=== PATIENT | male | born 1950 | race African-American/Black ===

== ENCOUNTER 2016-06-10 14:08 | Inpatient (IN) | payer MEDICARE, OTHER, MEDICAID ==
[~2016-06-10] VITALS: Ht 182.9 cm; Wt 99.8 kg
[2016-06-10] MEDS ORDERED: LORAZEPAM1 MG ORAL (14:21)
[2016-06-10] MEDS ORDERED: ATORVASTATIN CA20 MG ORAL (14:21)
[2016-06-10] MEDS ORDERED: TYLENOL650 MG/20. ORAL (14:21)
[2016-06-10] MEDS ORDERED: SERTRALINE HCL25 MG ORAL (14:21)
[2016-06-10] MEDS ORDERED: HYDROXYZINE PA100 MG ORAL (14:21)
[2016-06-10] MEDS ORDERED: ZYPREXA5 MG ORAL (14:21)
--- NOTE | 2016-06-10 14:24 | Emergency Room Report ---
History of Present Illness General Chief Complaint: Altered Level of Consciousness Source: Patient, EMS Present Illness HPI Patient is a 65-year-old male brought in from assisted living after increased altered level consciousness. Patient was found lying on the floor. He was reportedly unresponsive. He is noted to have prior history of CVA. Patient had been brought in by EMS. He was noted to have a blood sugar greater than 200. He had unclear onset of symptoms. History is limited by patient's mental status. Allergies: Coded Allergies: No Known Allergies (Unverified , 06/10/16) Patient History Reviewed Nursing Documentation: PMH: Agreed, PSxH: Agreed Nursing Documentation-PM Past Medical History: No History, Except For Hx Hypertension: Yes Hx Gastrointestinal Problems: Yes - GERD History Of Psychiatric Problem: Yes - schizoaffective disorder Review of Systems All Other Systems: limited - by Physical Exam Vital Signs Date Time Temp Pulse Resp B/P Pulse Ox O2 Delivery O2 Flow Rate FiO2 06/10/16 14:12 98.4 116 20 121/63 97 Room Air Sp02 EP Interpretation: reviewed, normal General Appearance: normal inspection, no apparent distress, other - E1 V2M5 Head: atraumatic ENT: normal ENT inspection, hearing grossly normal, normal voice Neck: normal inspection, full range of motion, supple, no bony tend Respiratory: normal inspection, lungs clear, normal breath sounds, no respiratory distress, no retraction, no wheezing Cardiovascular #1: regular rate, rhythm, no edema Gastrointestinal: normal inspection, normal bowel sounds, non tender, soft, no guarding, no hernia Genitourinary: no CVA tenderness Musculoskeletal: normal inspection, back normal, normal range of motion Neurologic: normal inspection, alert, responsive, speech normal Psychiatric: normal inspection, judgement/insight normal, mood/affect normal Skin: normal inspection, normal color, no rash Medical Decision Making Diagnostic Impression: Primary Impression: Altered level of consciousness Additional Impressions: Lactic acid acidosis Seizure ER Course Patient is a 65-year-old male. Differential diagnosis included but was not limited to ischemic stroke, subarachnoid hemorrhage, hypoglycemia, spinal cord injury, neurodegenerative disorder, urinary tract infection, hypoxemia.Because of complexity of patient's case laboratory testing and imaging studies were ordered.Laboratory testing showed elevated Lactic acid level. A repeat lactic as low as noted been improved. The patient had normal white blood count. The patient had gradual improvement in his mental status. Patient was empirically loaded with Keppra may have had a recent seizure. Labs Test 06/10/16 15:15 06/10/16 17:30 White Blood Count 13.0 K/UL (4.8-10.8) Red Blood Count 4.07 M/UL (4.70-6.10) Hemoglobin 12.6 G/DL (14.2-18.0) Hematocrit 39.2 % (42.0-52.0) Mean Corpuscular Volume 96 FL (80-99) Mean Corpuscular Hemoglobin 31.1 PG (27.0-31.0) Mean Corpuscular Hemoglobin Concent 32.2 G/DL (32.0-36.0) Red Cell Distribution Width 12.0 % (11.6-14.8) Platelet Count 209 K/UL (150-450) Mean Platelet Volume 6.7 FL (6.5-10.1) Neutrophils (%) (Auto) % (45.0-75.0) Lymphocytes (%) (Auto) % (20.0-45.0) Monocytes (%) (Auto) % (1.0-10.0) Eosinophils (%) (Auto) % (0.0-3.0) Basophils (%) (Auto) % (0.0-2.0) Differential Total Cells Counted 100 Neutrophils % (Manual) 85 % (45-75) Lymphocytes % (Manual) 10 % (20-45) Monocytes % (Manual) 4 % (1-10) Eosinophils % (Manual) 1 % (0-3) Basophils % (Manual) 0 % (0-2) Band Neutrophils 0 % (0-8) Platelet Estimate Adequate Platelet Morphology Normal Red Blood Cell Morphology Normal Prothrombin Time 10.7 SEC (9.30-11.50) Prothromb Time International Ratio 1.1 (0.9-1.1) Activated Partial Thromboplast Time 23 SEC (23-33) Sodium Level 144 mEQ/L (135-145) Potassium Level 3.9 mEQ/L (3.4-4.9) Chloride Level 100 mEQ/L (98-107) Carbon Dioxide Level 20 mEQ/L (20-30) Anion Gap 24 (5-15) Blood Urea Nitrogen 11 mg/dL (7-23) Creatinine 1.6 mg/dL (0.7-1.2) Estimat Glomerular Filtration Rate 43.6 mL/min (>60) Glucose Level 154 mg/dL (74-106) Calcium Level 9.7 mg/dL (8.6-10.2) Total Bilirubin 0.4 mg/dL (0.0-1.2) Aspartate Amino Transf (AST/SGOT) 19 U/L (5-40) Alanine Aminotransferase (ALT/SGPT) 16 U/L (3-41) Alkaline Phosphatase 51 U/L (40-129) Total Creatine Kinase 362 U/L (38-174) Creatine Kinase MB 4.2 ng/mL (< 6.7) Creatine Kinase MB Relative Index 1.1 Troponin I < 0.30 ng/mL (<=0.30) Total Protein 7.3 g/dL (6.6-8.7) Albumin 4.1 g/dL (3.5-5.2) Globulin 3.2 g/dL Albumin/Globulin Ratio 1.2 (1.0-2.7) Lactic Acid Level 1.40 mmol/L (0.66-2.22) Last Vital Signs Date Time Temp Pulse Resp B/P Pulse Ox O2 Delivery O2 Flow Rate FiO2 06/10/16 14:12 98.4 116 20 121/63 97 Room Air Status: unchanged Disposition: ADMITTED INPATIENT Condition: Serious Albert Momin Jun 10, 2016 14:24
[2016-06-10 15:22] VITALS: BP 163/83
[2016-06-10 15:31] LABS: MEAN CORPUSCULAR HEMOGLOBIN 31.1 PG (27.0-31.0); MEAN CORPUSCULAR HGB CONC 32.2 G/DL (32.0-36.0); MEAN CORPUSCULAR VOLUME 96 FL (80-99); MEAN PLATELET VOLUME 6.7 FL (6.5-10.1); PLATELET COUNT 209 K/UL (150-450); RED BLOOD COUNT 4.07 M/UL (4.70-6.10)
[2016-06-10 15:38] LABS: INR 1.1 (0.9-1.1); PROTHROMBIN TIME 10.7 SEC (9.30-11.50)
[2016-06-10 15:49] LABS: TROPONIN I < 0.30 ng/mL (<=0.30)
[2016-06-10 15:51] LABS: ALBUMIN/GLOBULIN RATIO 1.2 (1.0-2.7); CALCIUM 9.7 mg/dL (8.6-10.2); CREATININE 1.6 mg/dL (0.7-1.2); GLOMERULAR FILTRATION RATE 43.6 mL/min (>60); POTASSIUM 3.9 mEQ/L (3.4-4.9); TOTAL PROTEIN 7.3 g/dL (6.6-8.7)
[2016-06-10] MEDS ORDERED: cefTRIAXone 2 GM in NS 110 ML IVPB ONE (16:00)
[2016-06-10 16:02] LABS: CKMB 4.2 ng/mL (< 6.7)
[2016-06-10 16:21] LABS: REFLEX LACTIC ACID YES OR NO YES
[2016-06-10 17:12] LABS: BAND NEUTROPHILS % (MANUAL) 0 % (0-8); BASOPHILS % (MANUAL) 0 % (0-2); EOSINOPHILS % (MANUAL) 1 % (0-3); LYMPHOCYTES % (MANUAL) 10 % (20-45); NEUTROPHILS % (MANUAL) 85 % (45-75); PLATELET ESTIMATE ADEQUATE; PLATELET MORPHOLOGY NORMAL; TOTAL CELLS COUNTED 100
[2016-06-10 19:13] VITALS: BP 162/81
[2016-06-10] MEDS ORDERED: levETIRAcetam 500 MG in D5W 110 ML IVPB ONE (19:15)
[2016-06-10] MEDS ORDERED: levETIRAcetam 500mg vial IV ONE (19:22)
[2016-06-10 20:17] LABS: APPEARANCE,URINE CLEAR; KETONES,URINE 3+ (NEGATIVE); LEUKOCYTE ESTERASE ,URINE NEGATIVE (NEGATIVE); NITRITE,URINE NEGATIVE (NEGATIVE); PH,URINE 6 (4.5-8.0); PROTEIN,URINE 1+ (NEGATIVE); UROBILINOGEN,URINE NORMAL MG/DL (0.0-1.0)
[2016-06-10 20:26] LABS: BACTERIA,URINE FEW /HPF; SQUAMOUS EPITHELIAL CELL,UR FEW /LPF (NONE/OCC)
[2016-06-10 21:13] VITALS: BP 166/84
[2016-06-10 23:13] VITALS: BP 164/87
[2016-06-10] MEDS ORDERED: LORazepam 1mg tab ORAL ONE (23:15)
[2016-06-10] MEDS ORDERED: Vancomycin 1.5 GM/D5W 325 ML IVPB ONE ×2 (23:30)
[2016-06-11] MEDS ORDERED: Zosyn 3.375gm inj ONE (03:41)
[2016-06-11] MEDS ORDERED: Piperacillin/Tazobactam 3.375 GM in NS 110 ML IVPB ONE (04:30)
[2016-06-11 05:25] LABS: BASOPHILS % (AUTO) 1.1 % (0.0-2.0); LYMPHOCYTES % (AUTO) 21.5 % (20.0-45.0); MEAN CORPUSCULAR HEMOGLOBIN 31.7 PG (27.0-31.0); MEAN CORPUSCULAR HGB CONC 32.9 G/DL (32.0-36.0); MEAN CORPUSCULAR VOLUME 96 FL (80-99); MEAN PLATELET VOLUME 7.4 FL (6.5-10.1); NEUTROPHILS % (AUTO) 71.4 % (45.0-75.0); PLATELET COUNT 194 K/UL (150-450); RED BLOOD COUNT 3.95 M/UL (4.70-6.10); RED CELL DISTRIBUTION WIDTH 12.1 % (11.6-14.8); WHITE BLOOD COUNT 11.6 K/UL (4.8-10.8)
[2016-06-11 05:43] LABS: ALANINE AMINOTRANSFERASE 24 U/L (3-41); ALBUMIN/GLOBULIN RATIO 1.2 (1.0-2.7); ANION GAP 18 (5-15); ASPARTATE AMINO TRANSFERASE 54 U/L (5-40); CALCIUM 9.3 mg/dL (8.6-10.2); CARBON DIOXIDE 21 mEQ/L (20-30); CHLORIDE 103 mEQ/L (98-107); CREATININE 1.2 mg/dL (0.7-1.2); GLOMERULAR FILTRATION RATE > 60 mL/min (>60); HEMOLYSIS 11; POTASSIUM 3.9 mEQ/L (3.4-4.9); SODIUM 142 mEQ/L (135-145); TOTAL PROTEIN 6.7 g/dL (6.6-8.7)
[2016-06-11] MEDS: NovoLOG Insulin Flexpen SUBQ SCH ×4 (06:08→21:19)
[2016-06-11] MEDS ORDERED: Sertraline 50mg tab ORAL SCH (09:00)
[2016-06-11] MEDS ORDERED: levETIRAcetam 500 MG in D5W 110 ML IV SCH (09:00)
[2016-06-11] MEDS: Heparin 5000 units/ml inj SUBQ SCH ×2 (09:20→21:12)
--- NOTE | 2016-06-11 09:32 | Diagnostic Imaging Report ---
Indication: AMS Technique: Continuous helical CT scanning of the head was performed without intravenous contrast material. Axial and coronal 5 mm sections were generated. Radiation dose was minimized using automated exposure control Dose: Total Dose Length Product - DLP [address] Dose Index - CTDIvol(s) 70.38 mGy. Comparison: None Findings: The ventricular system is normal in size and configuration. There is no shift of midline structures. No abnormal extra-axial fluid collections are noted. There is no evidence of intracerebral bleeding. No other abnormal high or low density areas are noted within the brain. Impression: Normal CT scan of the head without contrast material. This agrees with the preliminary interpretation provided overnight by Dr. Segovia The CT scanner at [facility] is accredited by the [employer] and the scans are performed using protocols designed to limit radiation exposure to as low as reasonably achievable to attain images of sufficient resolution adequate for diagnostic evaluation.
[2016-06-11 09:53] VITALS: BP 166/86
[2016-06-11 12:00] VITALS: BP 179/85
[2016-06-11] MEDS ORDERED: LORazepam Inj 2mg/ml 1ml IV PRN (12:00)
--- NOTE | 2016-06-11 12:02 | Neurology Progress Note ---
Objective Physical Exam Last Vital Signs Date Time Temp Pulse Resp B/P Pulse Ox O2 Delivery O2 Flow Rate FiO2 06/11/16 09:53 98.1 105 20 166/86 97 06/10/16 23:26 Room Air Laboratory Tests Test 06/10/16 15:15 06/10/16 17:30 06/10/16 20:00 06/11/16 04:30 White Blood Count 13.0 K/UL (4.8-10.8) H 11.6 K/UL (4.8-10.8) H Red Blood Count 4.07 M/UL (4.70-6.10) L 3.95 M/UL (4.70-6.10) L Hemoglobin 12.6 G/DL (14.2-18.0) L 12.5 G/DL (14.2-18.0) L Hematocrit 39.2 % (42.0-52.0) L 38.1 % (42.0-52.0) L Mean Corpuscular Volume 96 FL (80-99) 96 FL (80-99) Mean Corpuscular Hemoglobin 31.1 PG (27.0-31.0) H 31.7 PG (27.0-31.0) H Mean Corpuscular Hemoglobin Concent 32.2 G/DL (32.0-36.0) 32.9 G/DL (32.0-36.0) Red Cell Distribution Width 12.0 % (11.6-14.8) 12.1 % (11.6-14.8) Platelet Count 209 K/UL (150-450) 194 K/UL (150-450) Mean Platelet Volume 6.7 FL (6.5-10.1) 7.4 FL (6.5-10.1) Neutrophils (%) (Auto) % (45.0-75.0) 71.4 % (45.0-75.0) Lymphocytes (%) (Auto) % (20.0-45.0) 21.5 % (20.0-45.0) Monocytes (%) (Auto) % (1.0-10.0) 5.0 % (1.0-10.0) Eosinophils (%) (Auto) % (0.0-3.0) 1.0 % (0.0-3.0) Basophils (%) (Auto) % (0.0-2.0) 1.1 % (0.0-2.0) Differential Total Cells Counted 100 Neutrophils % (Manual) 85 % (45-75) H Lymphocytes % (Manual) 10 % (20-45) L Monocytes % (Manual) 4 % (1-10) Eosinophils % (Manual) 1 % (0-3) Basophils % (Manual) 0 % (0-2) Band Neutrophils 0 % (0-8) Platelet Estimate Adequate Platelet Morphology Normal Red Blood Cell Morphology Normal Prothrombin Time 10.7 SEC (9.30-11.50) Prothromb Time International Ratio 1.1 (0.9-1.1) Activated Partial Thromboplast Time 23 SEC (23-33) Sodium Level 144 mEQ/L (135-145) 142 mEQ/L (135-145) Potassium Level 3.9 mEQ/L (3.4-4.9) 3.9 mEQ/L (3.4-4.9) Chloride Level 100 mEQ/L (98-107) 103 mEQ/L (98-107) Carbon Dioxide Level 20 mEQ/L (20-30) 21 mEQ/L (20-30) Anion Gap 24 (5-15) H 18 (5-15) H Blood Urea Nitrogen 11 mg/dL (7-23) 9 mg/dL (7-23) Creatinine 1.6 mg/dL (0.7-1.2) H 1.2 mg/dL (0.7-1.2) Estimat Glomerular Filtration Rate 43.6 mL/min (>60) > 60 mL/min (>60) Glucose Level 154 mg/dL (74-106) H 122 mg/dL (74-106) H Lactic Acid Level 5.00 mmol/L (0.66-2.22) H 1.40 mmol/L (0.66-2.22) Calcium Level 9.7 mg/dL (8.6-10.2) 9.3 mg/dL (8.6-10.2) Total Bilirubin 0.4 mg/dL (0.0-1.2) 0.5 mg/dL (0.0-1.2) Aspartate Amino Transf (AST/SGOT) 19 U/L (5-40) 54 U/L (5-40) H Alanine Aminotransferase (ALT/SGPT) 16 U/L (3-41) 24 U/L (3-41) Alkaline Phosphatase 51 U/L (40-129) 52 U/L (40-129) Total Creatine Kinase 362 U/L (38-174) H Creatine Kinase MB 4.2 ng/mL (< 6.7) Creatine Kinase MB Relative Index 1.1 Troponin I < 0.30 ng/mL (<=0.30) Total Protein 7.3 g/dL (6.6-8.7) 6.7 g/dL (6.6-8.7) Albumin 4.1 g/dL (3.5-5.2) 3.7 g/dL (3.5-5.2) Globulin 3.2 g/dL 3.0 g/dL Albumin/Globulin Ratio 1.2 (1.0-2.7) 1.2 (1.0-2.7) Urine Color Pale yellow Urine Appearance Clear Urine pH 6 (4.5-8.0) Urine Specific [place] 1.015 (1.005-1.035) Urine Protein 1+ (NEGATIVE) H Urine Glucose (UA) Negative (NEGATIVE) Urine Ketones 3+ (NEGATIVE) H Urine Occult Blood 2+ (NEGATIVE) H Urine Nitrite Negative (NEGATIVE) Urine Bilirubin Negative (NEGATIVE) Urine Urobilinogen Normal MG/DL (0.0-1.0) Urine Leukocyte Esterase Negative (NEGATIVE) Urine RBC 5-10 /HPF (0 - 0) H Urine WBC 2-4 /HPF (0 - 0) Urine Squamous Epithelial Cells Few /LPF (NONE/OCC) Urine Bacteria Few /HPF (NONE) Impression/Recommendations Problems: (1) generalised rigidity, tremor, verbal unresponsiveness. r/o sepsis r/o toxic/ methabolic encephalopathy (2) Lactic acid acidosis Status: unchanged Recommendations #[id number] hold serthraline SANIYA Carnes Jun 11, 2016 12:02
--- NOTE | 2016-06-11 12:07 | Diagnostic Imaging Report ---
Indication: SOB Technique: One view of the chest Comparison: none Findings: Lungs and pleural spaces are clear. Heart size is normal Impression: Negative
[2016-06-11] MEDS: Piperacillin/Tazobactam 3.375 GM in D5W 110 ML IVPB SCH ×2 (13:05→21:07)
[2016-06-11 13:10] LABS: CHOLESTEROL/HDL RATIO 2.7 (3.3-4.4)
[2016-06-11 13:17] LABS: CKMB 9.4 ng/mL (< 6.7)
[2016-06-11 16:00] VITALS: BP 154/94
[2016-06-11] MEDS ORDERED: Tubing IV Secondary IV ONE (16:11)
[2016-06-11] MEDS: Vancomycin 750mg/D5W 275ml IVPB SCH ×2 (16:21)
--- NOTE | 2016-06-11 18:47 | History and Physical Report ---
DATE OF ADMISSION: 06/10/2016 REASON FOR ADMISSION: Altered mental status. HISTORY OF PRESENT ILLNESS: The patient is a 65-year-old male who presented through the emergency room. The patient apparently brought in from assisted living with increased altered level of consciousness. The patient apparently was found lying on the floor, reportedly unresponsive. The patient has had prior history of CVA. Apparently, the patient was unable to give much in the way of history. The patient was seen in the emergency room, labs ordered, as well as CT of the head. The patient is now being admission for ongoing management. The patient does not have any elevated blood sugars. No reported head trauma. PAST MEDICAL HISTORY: Notable for GERD, history of CVA in the past, schizoaffective disorder, and chronic encephalopathy. MEDICATIONS: Reviewed. ALLERGIES: Reviewed. SOCIAL HISTORY: Resides in assisted living. Nonsmoker. Nondrinker. No clear history of IV drug use. REVIEW OF SYSTEMS: The patient's review of systems is difficult to obtain as the patient is altered. PHYSICAL EXAMINATION: GENERAL: A well-developed male, comfortable. VITAL SIGNS: Blood pressure 164/87, pulse 87, respiratory rate 21, saturation 98%, and temperature is 98.3. HEENT: Fairly negative. NECK: Supple. No adenopathy. LUNGS: Moderate breath sounds. Symmetric. No rhonchi or wheezes. CARDIAC: S1 and S2. Regular rate and rhythm without murmurs, rubs, or gallops. ABDOMEN: Soft, nontender, and nondistended. EXTREMITIES: No cyanosis, clubbing, or edema. NEUROLOGICAL: Grossly nonfocal with reduced mental status. LABORATORY AND DIAGNOSTIC DATA: Lab data reviewed. White blood cell count 11.6, hemoglobin 12.5, hematocrit 38, and platelets are 194,000. Chemistry is fairly negative. Blood sugar is 122, however, lactic acid is 5 on initial draw. Repeat is 1.4. IMPRESSION: 1. Altered mental status. 2. Acute on chronic encephalopathy. 3. Hypercholesterolemia. 4. History of gastroesophageal reflux disease. 5. History of cerebrovascular accident. 6. Possible acute neurological event. 7. Seizure disorder. 8. Consider sepsis. RECOMMENDATION: 1. Empiric antibiotics. 2. Neurological evaluation. 3. ID evaluation. 4. Seizure medications. 5. Follow clinically. 6. Recommend to avoid any sedatives. 7. Monitor neurological exam, consider further workup. 8. We will continue to support clinically. 9. The patient to remain in [facility] for now and presently required NG feedings as he appears to be of aspiration risk. Jorgito Pemberton M.D. DR: JOEY JOB#: [id number] CC: EVELIO
[2016-06-11 19:00] VITALS: BP 137/78
--- NOTE | 2016-06-11 19:58 | Consultation ---
DATE OF CONSULTATION: 06/11/2016 REFERRING PHYSICIAN: Jorgito Pemberton M.D. REASON FOR CONSULTATION: Leukocytosis. HISTORY OF PRESENTING ILLNESS: This is a 65-year-old gentleman with history of gastroesophageal reflux disease, hypertension, schizoaffective disorder who came in with altered level of consciousness. He was found lying on the floor unresponsive. He does have a prior history of CVA. He was found to have a sugar greater than 200 and Infectious Diseases consultation has been obtained for leukocytosis. PAST MEDICAL HISTORY: 1. History of hypertension. 2. GERD. 3. Schizoaffective disorder. MEDICATIONS: As an inpatient, the patient is on IV vancomycin, Lipitor, Zosyn, subcutaneous heparin, levetiracetam, olanzapine, Zoloft, hydroxyzine, insulin, Tylenol. ALLERGIES: No known drug allergies. SOCIAL HISTORY: Unknown. FAMILY HISTORY: Unknown. REVIEW OF SYSTEMS: Unable to obtain currently. PHYSICAL EXAMINATION: VITAL SIGNS: Temperature of 98.1, T-max of 98.6, pulse 105, respiratory rate 20, blood pressure 166/86, O2 saturation of 97%. HEENT: Pupils equally reactive to light and accommodation. Mouth appears clean without thrush. NECK: Supple. No adenopathy. No JVD. CARDIOVASCULAR: Regular rate and rhythm. No murmurs. LUNGS: Clear to auscultation bilaterally. No crackles. No wheezes. ABDOMEN: Soft and nontender. No organomegaly. EXTREMITIES: No cyanosis, no clubbing, no edema. LABORATORY DATA: White count 13 yesterday and white count 11.6 today, hemoglobin 12.5, hematocrit 38.1, MCV 96, platelet count of 194, with neutrophils of 71%. Sodium 142, potassium 3.9, chloride 103, bicarb 21, BUN 9, creatinine 1.2, glucose 122. Calcium 9.3. Total bilirubin 0.5, AST 54, ALT 22, alkaline phosphatase 52. Total protein 6.7 and albumin 3.7. UA showing 2 to 4 white cells. Blood cultures are pending. CT head was normal. ASSESSMENT: 1. This is a 65-year-old gentleman with history of hypertension, who comes in with altered mental status, would be concerned regarding urinary tract infection or pneumonia as a possibility. 2. History of cerebrovascular accident. 3. History of schizoaffective disorder. PLAN: 1. Continue vancomycin and Zosyn for now. 2. We will order urine cultures. 3. We will follow up cultures and adjust antibiotics accordingly. I would like to thank, Dr. Pemberton for this consultation. Leonie Millard M.D. DR: Erica JOB#: [id number] CC: Jorgito Pemberton M.D.; Fax#: [phone]
--- NOTE | 2016-06-11 20:58 | Consultation ---
DATE OF CONSULTATION: 06/11/2016 NEUROLOGICAL CONSULTATION REQUESTING PHYSICIAN: Jorgito Pemberton M.D. HISTORY OF PRESENT ILLNESS: The patient is a 65-year-old male resident of [facility] brought to this hospital for acute changes in mental status home. The patient unable provide with information, this was compiled from medical records. According to the paramedics, the patient was found on the floor in his apartment in mild distress, but being noncooperative, presenting with a very strong hand puttier, resisting to examination. Vital signs were stable. Blood pressure 155/80, heart rate of 127, respiration 22. The patient was brought to emergency room. His vital signs remained stable with tachycardia and blood pressure 166/86. Imaging studies included CAT scan of the brain, which was reported as negative. Lab work was obtained revealing CBC study with WBC 13.0, hemoglobin 12.6, hematocrit 39.2. Normal coagulation Urinalysis 2+ ketones and 1+ protein. Chemistry panel with creatinine 1.6. Blood sugar 154. Elevated lactic acid 5.00. CPK . The patient was observed to have tremors, suspected to have seizures activities. PAST MEDICAL HISTORY: History of hypertension, gastroesophageal reflux disease, schizoaffective disorder, previous stroke, hypertension. MEDICATIONS: His treatment list included Tylenol, atorvastatin, hydroxyzine, lorazepam, Zyprexa 5 mg daily, sertraline 15 mg daily. ALLERGIES: None reported. SOCIAL HISTORY: Resident of a [facility]. FAMILY HISTORY: Unavailable. REVIEW OF SYMPTOMS: Unable to obtain due to the patient's status. PHYSICAL EXAMINATION: GENERAL: This is a well-developed and moderately obese man, not in acute distress, lying comfortably in bed. VITAL SIGNS: Blood pressure 166/86, heart rate of 105. HEENT: Normocephalic. No evidence of trauma. NECK: Rigid in all directions. MUSCULOSKELETAL: No deformities noted. Peripheral pulses 1+ and symmetric. SKIN: No evidence of rash. MENTAL STATUS: The patient is arousable, has a very brief eye contact but does not follow commands. He mumbled on few occasions, his name but not clearly. CRANIAL NERVE II: Pupils both responding to light and accommodation. Extraocular movement intact. No nystagmus. CRANIAL NERVE V: Normal corneal responses. CRANIAL NERVE VII: No facial asymmetry. CRANIAL NERVE VIII: Grossly normal hearing. CRANIAL NERVE IX THROUGH XII: The patient would not open his mouth. MOTOR EXAMINATION: Severe diffuse rigidity in both upper and lower extremities. There is a resting fine tremor of both hands and feet. There is a slight flexor contracture of both lower extremities. The patient would not lift arms or legs. He was resisting to any attempt to move his arms or legs. Deep tendon reflexes depressed bilaterally. Plantar responses are mute. Sensory exam no response to pin stimulation. IMPRESSION: 1. New onset of verbal unresponsiveness, generalized rigidity and tremor, rule out toxic/metabolic encephalopathy, rule out neuroleptic malignant syndrome, rule out . 2. Hypertension. 3. Sinus tachycardia. 4. Chronic psychiatric disorder. DISCUSSION: 1. The patient has new onset of severe generalized rigidity with mild tremor, verbal unresponsiveness, sinus tachycardia. No evidence of acute stroke, very unlikely represents seizure activities, more likely event related to toxic or metabolic encephalopathy. I will hold olanzapine and Zoloft. Continue with IV fluids, antibiotics to cover possible underlying sepsis. Continue with . 2. Obtain electroencephalogram. 3. I will follow with you. Pop Basurto M.D. DR: Kiara JOB#: [id number] CC:
[2016-06-11] MEDS ORDERED: Vancomycin 1250mg in D5W 275ml IVPB SCH (23:30)
--- NOTE | 2016-06-12 00:01 | Cardiology Report ---
APPROVED REPORT EKG Measurement Heart [id number] Normal sinus rhythm Minimal voltage criteria for LVH, may be normal variant Nonspecific ST abnormality Prolonged QT Abnormal ECG
[2016-06-12 00:32] VITALS: BP 127/78
[2016-06-12] MEDS: Vancomycin 750mg/D5W 275ml IVPB SCH ×4 (03:39→16:15)
[2016-06-12 04:00] VITALS: BP 114/69
[2016-06-12] MEDS: Piperacillin/Tazobactam 3.375 GM in D5W 110 ML IVPB SCH ×3 (05:15→21:11)
[2016-06-12] MEDS: NovoLOG Insulin Flexpen SUBQ SCH ×4 (06:03→21:00)
[2016-06-12 08:00] VITALS: BP 139/74
[2016-06-12] MEDS: Heparin 5000 units/ml inj SUBQ SCH ×2 (09:28→21:09)
--- NOTE | 2016-06-12 10:51 | Infectious Diseases Prog Note ---
Assessment/Plan Assessment/Plan antibiotics : vancomycin iv, zosyn A 1. gram positive sepsis 2. leucocytosis improving 3. CVA 4. HTN P 1. continue vancomycin iv, zosyn 2. will follow up cultures Subjective Constitutional: Denies: chills, fever Respiratory: Denies: dry cough, shortness of breath Gastrointestinal/Abdominal: Denies: diarrhea, nausea, vomiting Musculoskeletal: Denies: pain Allergies: Coded Allergies: No Known Allergies (Unverified , 06/10/16) Objective Vital Signs Last 24 Hour Vital Signs Date Time Temp Pulse Resp B/P Pulse Ox O2 Delivery O2 Flow Rate FiO2 06/12/16 08:00 85 06/12/16 08:00 97.2 86 22 139/74 96 06/12/16 04:00 97.9 75 20 114/69 97 Room Air 06/12/16 03:53 64 06/12/16 00:32 98.0 65 20 127/78 96 Room Air 06/11/16 23:50 59 06/11/16 20:30 75 06/11/16 19:00 97.7 81 20 137/78 96 Room Air 06/11/16 16:00 98.2 84 20 154/94 97 Room Air 06/11/16 15:48 71 06/11/16 12:00 98.2 111 20 179/85 97 06/11/16 12:00 98 Height (Feet): 6 Height (Inches): 0.00 Weight (Pounds): 220 Respiratory/Chest: lungs clear Cardiovascular: normal rate, regular rhythm, no gallop/murmur Abdomen: soft, non tender Extremities: no edema Microbiology Date/Time Source Procedure Growth Status 06/10/16 15:15 Blood Blood Culture - Preliminary Resulted 06/10/16 15:05 Blood Blood Culture - Preliminary NO GROWTH AFTER 24 HOURS Resulted Laboratory Tests Test 06/11/16 12:35 Total Creatine Kinase 2040 U/L (38-174) H Creatine Kinase MB 9.4 ng/mL (< 6.7) H Creatine Kinase MB Relative Index 0.4 Triglycerides Level 78 mg/dL (< 150) Cholesterol Level 134 mg/dL (< 200) LDL Cholesterol 68 mg/dL (60-99) HDL Cholesterol 50 mg/dL (> 60) Cholesterol/HDL Ratio 2.7 (3.3-4.4) L Vitamin B12 Level 528 pg/mL (211-946) Anti-Nuclear Antibody Screen Pending ELDER ROSE Jun 12, 2016 10:51
[2016-06-12 12:00] VITALS: BP 108/73
--- NOTE | 2016-06-12 15:02 | General Progress Note ---
Assessment/Plan Assessment/Plan IMPRESSION: 1. Altered mental status. 2. Acute on chronic encephalopathy. 3. Hypercholesterolemia. 4. History of gastroesophageal reflux disease. 5. History of cerebrovascular accident. 6. Possible acute neurological event. 7. Seizure disorder. 8. Bacteremia PLAN care noted ID appreciated cultures reviewed monitor neuro exam improved may need short term SNF impression, plan, and exam edited and reviewed in detail care discussed with RN Subjective Allergies: Coded Allergies: No Known Allergies (Unverified , 06/10/16) Subjective improved LOC near normal Objective Last 24 Hour Vital Signs Date Time Temp Pulse Resp B/P Pulse Ox O2 Delivery O2 Flow Rate FiO2 06/12/16 12:00 97.9 84 21 108/73 98 Room Air 06/12/16 11:58 88 06/12/16 08:00 85 06/12/16 08:00 97.2 86 22 139/74 96 06/12/16 04:00 97.9 75 20 114/69 97 Room Air 06/12/16 03:53 64 06/12/16 00:32 98.0 65 20 127/78 96 Room Air 06/11/16 23:50 59 06/11/16 20:30 75 06/11/16 19:00 97.7 81 20 137/78 96 Room Air 06/11/16 16:00 98.2 84 20 154/94 97 Room Air 06/11/16 15:48 71 Intake and Output 06/11/16 06/12/16 18:59 06:59 Intake Total 675.000 ml 1705.000 ml Output Total 350 ml 1000 ml Balance 325.000 ml 705.000 ml Intake Oral 320 ml IV Total 675.000 ml 1385.000 ml Output Urine Total 350 ml 1000 ml Height (Feet): 6 Height (Inches): 0.00 Weight (Pounds): 220 Objective GENERAL: A well-developed male, comfortable. HEENT: Fairly negative. NECK: Supple. No adenopathy. LUNGS: Moderate breath sounds. Symmetric. No rhonchi or wheezes. CARDIAC: S1 and S2. Regular rate and rhythm without murmurs, rubs, or gallops. ABDOMEN: Soft, nontender, and nondistended. EXTREMITIES: No cyanosis, clubbing, or edema. NEUROLOGICAL: Grossly nonfocal with improved mental status. DIMITRI HUTCHINSON Jun 12, 2016 15:02
[2016-06-12 16:00] VITALS: BP 142/78
[2016-06-12 20:00] VITALS: BP 123/65
[2016-06-13] VITALS: BP 133/84
[2016-06-13 04:00] VITALS: BP 138/80
[2016-06-13] MEDS: Vancomycin 750mg/D5W 275ml IVPB SCH ×2 (04:52)
[2016-06-13] MEDS: Piperacillin/Tazobactam 3.375 GM in D5W 110 ML IVPB SCH ×2 (05:00→12:15)
[2016-06-13] MEDS: NovoLOG Insulin Flexpen SUBQ SCH ×4 (06:30→21:00)
[2016-06-13 08:00] VITALS: BP 128/78
--- NOTE | 2016-06-13 08:53 | Infectious Diseases Prog Note ---
Assessment/Plan Assessment/Plan A 1. Bacteremia likely contamination 2. leucocytosis improving 3. AMS 4. HPN P 1.Dis continue vancomycin, Continue Zosyn 2. will follow up cultures Subjective ROS Limited/Unobtainable: No Constitutional: Reports: no symptoms HEENT: Reports: no symptoms Respiratory: Reports: dry cough Cardiovascular: Reports: no symptoms Gastrointestinal/Abdominal: Reports: no symptoms Genitourinary: Reports: no symptoms Allergies: Coded Allergies: No Known Allergies (Unverified , 06/10/16) Objective Vital Signs Last 24 Hour Vital Signs Date Time Temp Pulse Resp B/P Pulse Ox O2 Delivery O2 Flow Rate FiO2 06/13/16 08:18 79 06/13/16 04:00 80 06/13/16 04:00 97.7 69 18 138/80 97 Room Air 06/13/16 00:00 68 06/13/16 00:00 97.5 63 18 133/84 97 Room Air 06/12/16 20:00 97.9 64 18 123/65 100 Room Air 06/12/16 19:31 71 06/12/16 16:00 97.0 66 18 142/78 100 Room Air 06/12/16 15:45 76 06/12/16 12:00 97.9 84 21 108/73 98 Room Air 06/12/16 11:58 88 Height (Feet): 6 Height (Inches): 0.00 Weight (Pounds): 220 General Appearance: no acute distress HEENT: mucous membranes moist Respiratory/Chest: lungs clear Cardiovascular: normal rate Abdomen: soft, non tender Extremities: no edema Neurologic/Psychiatric: alert, oriented x 3, responsive Microbiology Date/Time Source Procedure Growth Status 06/10/16 15:15 Blood Blood Culture - Preliminary Staphylococcus Sp Coag Neg Resulted 06/10/16 15:05 Blood Blood Culture - Preliminary NO GROWTH AFTER 48 HOURS Resulted 06/11/16 22:30 Urine,Clean Catch Urine Culture - Preliminary NO GROWTH AFTER 24 HOURS Resulted 06/10/16 23:25 Rectum VRE Culture - Final NO VANCOMYCIN RESISTANT ENTEROCOCCUS ... Complete Laboratory Tests Test 06/13/16 03:30 Vancomycin Level Trough 12.3 ug/mL (5.0-12.0) H Current Medications Medications (Trade) Dose Ordered Sig/Shauna Route PRN Reason Start Time Stop Time Status Last Admin Dose Admin Acetaminophen (Tylenol) 650 mg Q6H PRN ORAL Mild Pain/Temp > 100.5 06/10/16 23:15 07/10/16 23:14 Atorvastatin Calcium 10 mg 10 mg BEDTIME ORAL 06/11/16 21:00 07/11/16 20:59 06/12/16 21:08 Dextrose (Dextrose 50%) STAT PRN IV Hypoglycemia 06/10/16 22:45 07/10/16 22:44 Heparin Sodium (Porcine) 5000 units 5,000 units EVERY 12 HOURS SUBQ 06/11/16 09:00 07/11/16 08:59 06/12/16 21:09 Insulin Aspart (NovoLOG) BEFORE MEALS AND HS SUBQ 06/11/16 06:30 07/11/16 06:29 06/11/16 21:19 Lorazepam 1 mg 1 mg Q4H PRN IV for tremors 06/11/16 12:00 06/18/16 11:59 06/11/16 14:34 Piperacillin Sod/ Tazobactam Sod/ Dextrose (Zosyn/D5W) 110 ml @ 27.5 mls/hr Q8HR@0500,1300,2100 IVPB 06/11/16 13:00 06/18/16 12:59 06/13/16 05:00 Sodium Chloride (Sodium Chloride 1000ml bag) 1,000 ml @ 100 mls/hr Q10H IV 06/10/16 23:30 07/10/16 23:29 06/13/16 01:04 Vancomycin HCl (Vanco rx to dose) 1 ea DAILY PRN MISC Per rx protocol 06/10/16 22:45 07/10/16 22:44 Vancomycin HCl/ Dextrose (Vancomycin/D5W) 275 ml @ 183.708 mls/hr Q12H IVPB 06/13/16 16:00 06/18/16 15:59 WAYNE LOJA Jun 13, 2016 08:53
[2016-06-13] MEDS: Heparin 5000 units/ml inj SUBQ SCH ×2 (09:00→21:00)
[2016-06-13 12:00] VITALS: BP 149/80
[2016-06-13] MEDS ORDERED: Vancomycin 1gm/D5W 275ml IVPB SCH ×2 (16:00)
--- NOTE | 2016-06-13 16:11 | General Progress Note ---
Assessment/Plan Assessment/Plan IMPRESSION: 1. Altered mental status. 2. Acute on chronic encephalopathy. 3. Hypercholesterolemia. 4. History of gastroesophageal reflux disease. 5. History of cerebrovascular accident. 6. Possible acute neurological event. 7. Seizure disorder. 8. Bacteremia PLAN care noted ID appreciated off antibiotics cultures reviewed monitor neuro exam improved dc in am if stable impression, plan, and exam edited and reviewed in detail care discussed with RN Subjective Allergies: Coded Allergies: No Known Allergies (Unverified , 06/10/16) Subjective improved LOC near normal and baseline Objective Last 24 Hour Vital Signs Date Time Temp Pulse Resp B/P Pulse Ox O2 Delivery O2 Flow Rate FiO2 06/13/16 12:00 97.0 73 21 149/80 97 Room Air 06/13/16 11:37 85 06/13/16 08:18 79 06/13/16 08:00 97.7 61 20 128/78 97 Room Air 06/13/16 04:00 80 06/13/16 04:00 97.7 69 18 138/80 97 Room Air 06/13/16 00:00 68 06/13/16 00:00 97.5 63 18 133/84 97 Room Air 06/12/16 20:00 97.9 64 18 123/65 100 Room Air 06/12/16 19:31 71 Intake and Output 06/12/16 06/13/16 19:00 07:00 Intake Total 1745.00 ml 1617.5 ml Output Total 100 ml 1150 ml Balance 1645.00 ml 467.5 ml Intake Oral 360 ml 380 ml IV Total 1385.00 ml 1237.5 ml Output Urine Total 100 ml 1150 ml # Voids 2 # Bowel Movements 2 Laboratory Tests 06/13/16 03:30: Vancomycin Level Trough 12.3H Height (Feet): 6 Height (Inches): 0.00 Weight (Pounds): 220 Objective GENERAL: A well-developed male, comfortable. HEENT: Fairly negative. NECK: Supple. No adenopathy. LUNGS: Moderate breath sounds. Symmetric. No rhonchi or wheezes. CARDIAC: S1 and S2. Regular rate and rhythm without murmurs, rubs, or gallops. ABDOMEN: Soft, nontender, and nondistended. EXTREMITIES: No cyanosis, clubbing, or edema. NEUROLOGICAL: Grossly nonfocal with improved mental status. DIMITRI HUTCHINSON Jun 13, 2016 16:11
[2016-06-13 16:30] VITALS: BP 137/71
--- NOTE | 2016-06-13 16:43 | Neurology Progress Note ---
Interim History Interim History ROS Limited/Unobtainable: No Complaints: none Events: stable Objective Physical Exam Last Vital Signs Date Time Temp Pulse Resp B/P Pulse Ox O2 Delivery O2 Flow Rate FiO2 06/13/16 16:30 97.7 64 18 137/71 97 Room Air Laboratory Tests Test 06/13/16 03:30 Vancomycin Level Trough 12.3 ug/mL (5.0-12.0) H General: well developed, no acute distress, other - obese Head: normocophalic, atraumatic Neurologic Exam Mental Status: awake, alert, preserved visuospatial function, other - recent memory loss Speech: normal speech, no dysarthia Language: normal language, no aphasia Cranial Nerve II: fundus normal, visual lee, no papilledema Cranial Nerves III, IV, : PERRLA, EOMI, pupils Cranial Nerve V: normal facial sensations, temporales function normal, masseters function normal, pterygoids function normal Cranial Nerve VII: no facial asymmetry, normal facial expressions Cranial Nerve VIII: normal hearing, no nystagmus Cranial Nerve IX: normal palate elevation, gag response Cranial Nerve X: no voice hoarseness Cranial Nerve XI: SCM symmetric, trapezii function normal Cranial Nerve XII: tongue midline, no tongue atrophy/fasciculations Motor System: normal muscle tone, strength 5/5, no involuntary movement, no muscle wasting Sensory: normal pinprick Coordination: normal finger to nose bilaterally, normal heel to noyola bilaterally, negative Romberg test Deep Tendon Reflexes: 1+ ankle (L), 1+ ankle (R), 1+ bicep (L), 1+ bicep (R), 1 + brachioradialis (L), 1+ brachioradialis (R), 1+ knee (L), 1+ knee (R), 1+ tricep (L), 1+ tricep (R) Reflexes: mute plantar (L), mute plantar (R) Gait: other - stable Impression/Recommendations Problems: (1) generalised rigidity, tremor, verbal unresponsiveness. r/o sepsis r/o toxic/ methabolic encephalopathy (2) Lactic acid acidosis (3) Mild cognitive impairment Status: doing well, stable Recommendations #[id number] hold serthraline zyprexa EEg no sz neuro stable SANIYA PORTER Jun 13, 2016 16:43
[2016-06-13] MEDS ORDERED: Tubing IV Secondary IV ONE (18:18)
[2016-06-13] MEDS ORDERED: NS 275ml ONE (18:18)
--- NOTE | 2016-06-13 19:28 | Electroencephalogram ---
DATE OF PROCEDURE: 06/11/2016 REFERRING PHYSICIAN: Jorgito Pemberton M.D. HISTORY: The patient is a 65-year-old with acute changes in mental status and generalized shaking suspected to have seizure activity. The patient has a history of previous strokes, schizoaffective disorder. Current treatment include Zoloft, Lipitor, and vancomycin. EEG was done using 18 electrodes placed on scalp to scalp, scalp to ear montages according to 10/20 International System. During the recording, the patient was awake, drowsy or asleep. Normal mentality and fair cooperation. Most of recording, background activity consists of low voltage 8 to 9 cycles alpha activity override by fast or low voltage beta activities, intermittent slowing with 5 to 6 hertz . There is no asymmetry from side to side. No spike or wave activities. IMPRESSION: Normal awake stage 1 sleep EEG. COMMENT: Absence of paroxysmal event on a single recording does not rule out seizure disorder. Pop Basurto M.D. DR: Kiara JOB#: [id number] CC:
[2016-06-13 20:00] VITALS: BP 128/73
[2016-06-13] MEDS: Piperacillin/Tazobactam 3.375 GM in NS 110 ML IVPB SCH (22:21)
[2016-06-14 00:11] VITALS: BP 138/68
[2016-06-14 04:14] VITALS: BP 135/78
[2016-06-14] MEDS: Piperacillin/Tazobactam 3.375 GM in NS 110 ML IVPB SCH (05:40)
[2016-06-14] MEDS: NovoLOG Insulin Flexpen SUBQ SCH (06:30)
--- NOTE | 2016-06-14 08:04 | General Progress Note ---
Assessment/Plan Assessment/Plan IMPRESSION: 1. Altered mental status. 2. Acute on chronic encephalopathy. 3. Hypercholesterolemia. 4. History of gastroesophageal reflux disease. 5. History of cerebrovascular accident. 6. Possible acute neurological event. 7. Seizure disorder. 8. Bacteremia PLAN care noted ID appreciated off antibiotics and stable cultures reviewed monitor neuro exam improved dc today impression, plan, and exam edited and reviewed in detail care discussed with RN Subjective Allergies: Coded Allergies: No Known Allergies (Unverified , 06/10/16) Subjective improved LOC near normal and at baseline Objective Last 24 Hour Vital Signs Date Time Temp Pulse Resp B/P Pulse Ox O2 Delivery O2 Flow Rate FiO2 06/14/16 04:14 98.3 68 21 135/78 97 Room Air 06/14/16 04:00 64 06/14/16 00:11 97.5 70 20 138/68 95 Room Air 06/14/16 00:00 60 06/13/16 20:00 98.1 68 20 128/73 96 Room Air 06/13/16 20:00 70 06/13/16 16:30 97.7 64 18 137/71 97 Room Air 06/13/16 15:40 64 06/13/16 12:00 97.0 73 21 149/80 97 Room Air 06/13/16 11:37 85 06/13/16 08:18 79 Intake and Output 06/13/16 06/14/16 19:00 07:00 Intake Total 1850 ml 1097.5 ml Output Total 1100 ml 800 ml Balance 750 ml 297.5 ml Intake Oral 440 ml 300 ml IV Total 1110 ml 797.5 ml Blood Product 300 ml Output Urine Total 1100 ml 800 ml # Voids 2 # Bowel Movements 1 Labs Test 06/11/16 12:35 06/13/16 03:30 Total Creatine Kinase 2040 U/L (38-174) Creatine Kinase MB 9.4 ng/mL (< 6.7) Creatine Kinase MB Relative Index 0.4 Triglycerides Level 78 mg/dL (< 150) Cholesterol Level 134 mg/dL (< 200) LDL Cholesterol 68 mg/dL (60-99) HDL Cholesterol 50 mg/dL (> 60) Cholesterol/HDL Ratio 2.7 (3.3-4.4) Vitamin B12 Level 528 pg/mL (211-946) Anti-Nuclear Antibody Screen Negative (Negative) Vancomycin Level Trough 12.3 ug/mL (5.0-12.0) Height (Feet): 6 Height (Inches): 0.00 Weight (Pounds): 220 Objective GENERAL: A well-developed male, comfortable. HEENT: Fairly negative. NECK: Supple. No adenopathy. LUNGS: Moderate breath sounds. Symmetric. No rhonchi or wheezes. CARDIAC: S1 and S2. Regular rate and rhythm without murmurs, rubs, or gallops. ABDOMEN: Soft, nontender, and nondistended. EXTREMITIES: No cyanosis, clubbing, or edema. NEUROLOGICAL: Grossly nonfocal with improved mental status. DIMITRI HUTCHINSON Jun 14, 2016 08:04
[2016-06-14 08:44] VITALS: BP 140/70
--- NOTE | 2016-06-15 15:37 | Discharge Summary ---
Discharge Summary Hospital Course Date of Admission Jun 10, 2016 at 22:51 Date of Discharge Jun 14, 2016 at 11:34 Admitting Diagnosis ams, lactic acidosis, possible seizure HPI Magan Seay is a 65 year old male who was admitted on Jun 10, 2016 at 22 :51 for Altered Mental Status,Lactic Acidosis,Seizure Hospital Course [id number] Discharge Discharge Disposition Patient was discharged to [facility] (01) Discharge Diagnoses: Benita Wagner NP Jun 15, 2016 15:37
--- NOTE | 2016-06-16 01:17 | Discharge Summary 2 SIG ---
DATE OF ADMISSION: 06/10/2016 DATE OF DISCHARGE: 06/14/2016 CONSULTANTS: 1. Pop Basurto M.D. 2. Leonie Millard M.D. BRIEF HOSPITAL COURSE: The patient is a 65-year-old male, who presented to emergency room apparently brought in from assisted living with increased altered level of consciousness. The patient was found laying on the floor. He reportedly was unresponsive. He had a prior history of CVA and unable to give history. On evaluation at ED, a CT of the head showed normal CT scan, however labs showed elevated blood glucose and elevated lactic acid. The patient was admitted for further workup. Dr. Basurto was consulted. The patient has a new onset of severe generalized rigidity with mild tremor, verbal unresponsiveness, sinus tachycardia. No evidence of stroke. Unlikely seizure activity. More likely related to toxic or metabolic encephalopathy. Olanzapine and Zoloft were placed on hold. The patient was given IV hydration and was also seen by Infectious Diseases specialist, Dr. Millard and was given Zosyn and vancomycin. Pending blood cultures. Blood culture showed coagulase-negative Staphylococcus. EEG was done and showed no seizure activity. The patient was taken off antibiotics and the patient was eventually discharged back to assisted living with home health. FINAL DIAGNOSES: 1. Altered mental status/acute toxic metabolic encephalopathy. 2. Acute on chronic encephalopathy. 3. Hypercholesterolemia. 4. Possible acute neurologic event. 5. Bacteremia. 6. Gastroesophageal reflux disease. 7. Old cerebrovascular accident. Jorgito Pemberton M.D. I have been assigned to dictate discharge summary on this account and I was not involved in the patient's management. Benita Wagner N.P. DR: GELY JOB#: [id number] CC: EVELIO
== END 2016-06-14 11:34 | disposition home or self-care (01) | DRG 92 ==
LOC: EDBD 14:08 → EMR 14:45 → EDBEDREQ 22:31 → 2W 22:51 → 2E 06-13 18:18
DX: G92 Toxic encephalopathy (principal); E87.2 Acidosis; R78.81 Bacteremia; E78.00 Pure hypercholesterolemia, unspecified; Z86.73 Personal history of transient ischemic attack (TIA), and cerebral infarction without residual deficits; I10 Essential (primary) hypertension; K21.9 Gastro-esophageal reflux disease without esophagitis; F25.9 Schizoaffective disorder, unspecified; R25.1 Tremor, unspecified; G31.84 Mild cognitive impairment of uncertain or unknown etiology; R29.818 Other symptoms and signs involving the nervous system; R00.0 Tachycardia, unspecified
CPT/HCPCS: 36415; 70450; 71010; 80053; 80061; 80202; 81003; 82550; 82553; 82607; 82962; 83605; 84484; 85007; 85025; 85610; 85730; 86039; 87040; 87081; 87086; 87181; 93005; 95819; J1815